=== PATIENT | female | born 1970 | race African-American/Black ===

== ENCOUNTER 2017-03-13 17:40 | Emergency (ER) | payer SELFPAY ==
[~2017-03-13] VITALS: Ht 152.4 cm; Wt 100.0 kg
[~2017-03-13 17:40] MED LIST: IBUP-232 PO; Z.0.NO CURRENT MEDS
[2017-03-13 17:43] VITALS: BP 216/135; PULSE 100; RESP 14; TEMP 98.2; O2SAT 98
[2017-03-13 17:45] VITALS: BP 196/145
[2017-03-13] MEDS ORDERED: SODIUM CHLOR 0.9% 1000 ML INJ 1,000 ML IV ONE (20:17)
[2017-03-13] MEDS ORDERED: SODIUM CHLORIDE 0.9% FLUSH 10 ML FLUSH IVF PRN (20:30)
[2017-03-13] MEDS ORDERED: amLODIPine BESYLATE 5 MG TAB PO ONE (20:45)
[2017-03-13] MEDS ORDERED: AMLO5 PO (20:46)
--- NOTE | 2017-03-13 20:48 | PD ---
HPI Chief Complaint: [employer] Problem/Complaint Time Seen by Provider: 20:06 Travel History International Travel<30 days: No Contact w/Intl Traveler<30days: No Traveled to known affect area: No History of Present Illness HPI Patient is a 46-year-old female who presents to emergency room with multiple complaints. Patient reports that she currently is on day 2 of her menstrual cycle. She reports that she normally has her cycle for 4 days. She reports that she is concerned as she has increased menses and bleeding with increased lower abdominal cramping. Reports concerns for possible anemia. Reports that she did try taking ibuprofen with little relief of symptoms. Reports that she was last seen by a diesel truck crane operator 2 years ago. Denies any vaginal discharge. Denies fever/chills. Denies nausea or vomiting. Patient also reports that she was told by the health clinic that her blood pressure was high. Reports no history of htn in the past. Denies headache/ dizzyness at this time. Denies any vision changes. Denies chest pain/sob. PFSH Past Medical History Anemia: Yes ?: Not LMP: 03/13/17 Past Surgical History Surgical History: No Previous Surgery Social History Alcohol Use: No Tobacco Use: No Substance Use: No Allergies-Medications (Allergen,Severity, Reaction): Coded Allergies: No Known Allergies (Verified , 05/07/09) Reported Meds & Prescriptions Reported Meds & Active Scripts Active Norvasc (Amlodipine Besylate) 5 Mg Tab 5 Mg PO DAILY Motrin (Ibuprofen) 600 Mg Tab 600 Mg PO TID Reported No Current Meds (Miscellaneous Medication) Misc Review of Systems General / Constitutional: No: Fever Eyes: No: Visual changes HENT: No: Headaches, Vertigo, Lightheadedness, Sore Throat Cardiovascular: No: Chest Pain or Discomfort, Palpitations, Irregular Rhythm, Tachycardia Respiratory: No: Cough, Shortness of Breath Gastrointestinal: No: Abdominal Pain Genitourinary: Positive: Vaginal Bleeding, No: Dysuria, Nocturia, Hematuria, Decreased Urinary Output, Pelvic Pain, Flank Pain, Dyspareunia Musculoskeletal: No: Pain Skin: No Rash Neurologic: No: Weakness Psychiatric: No: Depression Endocrine: No: Polydipsia Hematologic/Lymphatic: No: Easy Bruising Physical Exam Narrative GENERAL: mild distress SKIN: Focused skin assessment warm/dry. HEAD: Atraumatic. Normocephalic. EYES: Pupils equal and round. No scleral icterus. No injection or drainage. ENT: No nasal bleeding or discharge. Mucous membranes pink and moist. NECK: Trachea midline. No JVD. CARDIOVASCULAR: Regular rate and rhythm. No murmur appreciated. RESPIRATORY: No accessory muscle use. Clear to auscultation. Breath sounds equal bilaterally. GASTROINTESTINAL: Abdomen soft, non-tender, nondistended. Hepatic and splenic margins not palpable. MUSCULOSKELETAL: No obvious deformities. No clubbing. No cyanosis. No edema. NEUROLOGICAL: Awake and alert. No obvious cranial nerve deficits. Motor grossly within normal limits. Normal speech. PSYCHIATRIC: Appropriate mood and affect; insight and judgment normal. Data Data Last Documented VS Vital Signs Date Time Temp Pulse Resp B/P (MAP) Pulse Ox O2 Delivery O2 Flow Rate FiO2 03/13/17 22:17 83 180/98 (125) 100 Room Air 03/13/17 17:43 98.2 14 Orders Orders Beta Hcg (Quant/Titer) (03/13/17 20:17) Complete Blood Count With Diff (03/13/17 20:17) Comprehensive Metabolic Panel (03/13/17 20:17) Urinalysis - C+S If Indicated (03/13/17 20:17) Iv Access Insert/Monitor (03/13/17 20:17) Ecg Monitoring (03/13/17 20:17) Sodium Chloride 0.9% Flush (Ns Flush) (03/13/17 20:30) Sodium Chlor 0.9% 1000 Ml Inj (Ns 1000 M (03/13/17 20:17) Ed Urine Pregnancytest Poc (03/13/17 20:17) Amlodipine (Norvasc) (03/13/17 20:45) Potassium Chloride (Kcl) (03/13/17 21:45) Us Pelvis Comp W Doppler (03/13/17 ) Labs Laboratory Tests Test 03/13/17 20:25 03/13/17 20:30 Urine Color YELLOW Urine Turbidity CLEAR Urine pH 6.0 Urine Specific [place] 1.021 Urine Protein 100 mg/dL Urine Glucose (UA) NEG mg/dL Urine Ketones NEG mg/dL Urine Occult Blood LARGE Urine Nitrite NEG Urine Bilirubin NEG Urine Urobilinogen LESS THAN 2.0 MG/DL Urine Leukocyte Esterase NEG Urine RBC /hpf Urine WBC 4 /hpf Urine Squamous Epithelial Cells 1 /hpf Urine Amorphous Sediment RARE Urine Mucus FEW /lpf Microscopic Urinalysis Comment CULT NOT INDICATED White Blood Count 8.1 TH/MM3 Red Blood Count 4.45 MIL/MM3 Hemoglobin 8.0 GM/DL Hematocrit 28.1 % Mean Corpuscular Volume 63.2 FL Mean Corpuscular Hemoglobin 17.9 PG Mean Corpuscular Hemoglobin Concent 28.4 % Red Cell Distribution Width 19.0 % Platelet Count 365 TH/MM3 Mean Platelet Volume 8.6 FL Neutrophils (%) (Auto) 68.9 % Lymphocytes (%) (Auto) 21.9 % Monocytes (%) (Auto) 6.5 % Eosinophils (%) (Auto) 1.9 % Basophils (%) (Auto) 0.8 % Neutrophils # (Auto) 5.6 TH/MM3 Lymphocytes # (Auto) 1.8 TH/MM3 Monocytes # (Auto) 0.5 TH/MM3 Eosinophils # (Auto) 0.2 TH/MM3 Basophils # (Auto) 0.1 TH/MM3 CBC Comment DIFF FINAL Differential Comment Blood Urea Nitrogen 12 MG/DL Creatinine 0.82 MG/DL Random Glucose 95 MG/DL Total Protein 8.4 GM/DL Albumin 4.0 GM/DL Calcium Level 9.5 MG/DL Alkaline Phosphatase 75 U/L Aspartate Amino Transf (AST/SGOT) 15 U/L Alanine Aminotransferase (ALT/SGPT) 21 U/L Total Bilirubin 0.7 MG/DL Sodium Level 138 MEQ/L Potassium Level 3.4 MEQ/L Chloride Level 107 MEQ/L Carbon Dioxide Level 24.0 MEQ/L Anion Gap 7 MEQ/L Estimat Glomerular Filtration Rate 90 ML/MIN Human Chorionic Gonadotropin, Quant LESS THAN 1 MIU/ML MDM Medical Decision Making Medical Screen Exam Complete: Yes Emergency Medical Condition: Yes Medical Record Reviewed: Yes Interpretation(s) Vital Signs Date Time Temp Pulse Resp B/P (MAP) Pulse Ox O2 Delivery O2 Flow Rate FiO2 03/13/17 17:45 196/145 (162) 03/13/17 17:43 98.2 100 14 216/135 (162) 98 Differential Diagnosis anemia, hypertension, electrolyte abnormality Narrative Course An IV line was established. CBC, CMP, hCG Quant ordered. Pelvic ultrasound ordered. Patient does have elevated blood pressure at 216/135, repeat blood pressure was 196/145, patient was told that she had hypertension at her clinic office today, that her on amlodipine 5mg daily. Patient understands importance of blood pressure rechecks at her primary care doctor's office in 2-3 days. Diagnosis Primary Impression: Menstrual cramps Additional Impressions: Hypertension Qualified Codes: I10 - Essential (primary) hypertension Uterine fibroid Anemia Referrals: Alireza Caceres MD Patient Instructions: General Instructions Additional Instructions: Please provide patient with a copy of their lab work and studies at discharge* * Please follow up with your primary care doctor in 2-3 days Return to the ER if symptoms worsen or progress Return to the ER as needed Please take all medications as prescribed You were started on Norvasc today which is an antihypertensive medication for your blood pressure, please follow up with your primary care doctor for blood pressure rechecks Please follow up with diesel truck crane operator as soon as possible and bring the studies from today with you to your appointment Med/Other Pt SpecificInfo: Prescription(s) given Scripts Amlodipine (Norvasc) 5 Mg Tab 5 MG PO DAILY for Blood Pressure Management, #30 TAB 0 Refills Prov: Rola Sexton DO 03/13/17 Disposition: 01 DISCHARGE HOME Condition: Stable Rola Sexton DO Mar 13, 2017 20:48
[2017-03-13 21:05] LABS: AUTOMATED NEUTROPHIL # 5.6 TH/MM3 (1.8-7.7); BASOPHIL # 0.1 TH/MM3 (0-0.2); BASOPHIL % 0.8 % (0.0-2.0); EOSINOPHIL # 0.2 TH/MM3 (0-0.4); EOSINOPHIL % 1.9 % (0.0-4.0); HEMATOCRIT 28.1 % (35.0-46.0); HEMO FLAGS DIFF FINAL; LYMPH % 21.9 % (9.0-44.0); LYMPHOCYTE # 1.8 TH/MM3 (1.0-4.8); MEAN CELL VOLUME 63.2 FL (80.0-100.0); MEAN CORPUSCULAR HEMOGLOBIN 17.9 PG (27.0-34.0); MONO % 6.5 % (0.0-8.0); NEUT % 68.9 % (16.0-70.0); PLATELET COUNT 365 TH/MM3 (150-450); RED BLOOD COUNT 4.45 MIL/MM3 (4.00-5.30); WHITE BLOOD COUNT 8.1 TH/MM3 (4.0-11.0)
[2017-03-13 21:16] LABS: MEAN CORPUSCULAR HGB CONC 28.4 % (32.0-36.0)
[2017-03-13 21:24] LABS: BLOOD, URINE LARGE (NEG); COMMENT (UR) CULT NOT INDICATED; CULTURE IF INDICATED CULT NOT INDICATED; GLUCOSE,URINE NEG (NEG); KETONE, URINE NEG (NEG); MUCUS URINE FEW /lpf (OCC); NITRITE,URINE NEG (NEG); SQUAMOUS EPITHELIAL CELL URINE 1 /hpf (0-5); URINE COLOR YELLOW (YELLW/STRAW)
[2017-03-13 21:30] LABS: ANION GAP 7 MEQ/L (5-15); AST (GOT) 15 U/L (15-37); BLOOD UREA NITROGEN 12 MG/DL (7-18); CHLORIDE 107 MEQ/L (98-107); GLOMERULAR FILTRATION RATE 90 ML/MIN (>89); POTASSIUM 3.4 MEQ/L (3.5-5.1); SODIUM (NA) 138 MEQ/L (136-145)
[2017-03-13 21:31] LABS: ALT (GPT) 21 U/L (10-53)
[2017-03-13 21:35] LABS: ALKALINE PHOSPHATASE 75 U/L (45-117); BETA HCG QUANT LESS THAN 1 MIU/ML (0-5); TOTAL BILIRUBIN ADULT 0.7 MG/DL (0.2-1.0)
[2017-03-13] MEDS ORDERED: POTASSIUM CHLORIDE 10 MEQ CONTROLLED RELEASE TAB PO ONE (21:45)
[2017-03-13 22:17] VITALS: BP 180/98; PULSE 83; O2SAT 100
--- NOTE | 2017-03-13 22:17 | RADRPT ---
EXAM DATE/TIME: 03/13/2017 21:47 [facility] COMPARISON: No previous studies available for comparison. INDICATIONS : Pelvic pain and excessive bleeding. MEDICAL HISTORY : . Anemia. Miscarriage. SURGICAL HISTORY : Cyst removed from right side of neck. ENCOUNTER: Initial ACUITY: 1 day PAIN SCORE: 9/10 LOCATION: Bilateral pelvis MEASUREMENTS: UTERUS: 14.7 x 9.1 x 7.7 cm ENDOMETRIAL STRIPE: 14 mm RIGHT OVARY: 4.3 x 2.8 x 2.3 cm LEFT OVARY: 3.9 x 2.2 x 2.2 cm FINDINGS: There is no free fluid, or adnexal mass. An approximate 7.2 cm uterine fibroid is seen. CONCLUSION: Huge uterine fibroid. Jesus Odom MD on March 13, 2017 at 22:15 Board Certified Radiologist. This report was verified electronically.
[2017-03-13 23:00] VITALS: BP 188/92; PULSE 89
== END 2017-03-13 23:15 | disposition home or self-care (01) ==
LOC: NEPD 17:40
DX: N94.6 Dysmenorrhea, unspecified (principal); I10 Essential (primary) hypertension; D25.9 Leiomyoma of uterus, unspecified; D64.9 Anemia, unspecified
CPT/HCPCS: 76856; 80053; 81001; 84702; 84703; 85025; 93975; 96360; 99285; J7030